=== PATIENT | female | born 1960 | race Hispanic/Latino ===

== ENCOUNTER 2025-06-08 01:56 | Emergency (ER) | payer OTHER ==
[~2025-06-08] VITALS: Ht 149.9 cm; Wt 59.0 kg
[~2025-06-08 01:56] MED LIST: AMLO-258 PO; Calcium Ac 667MG Cap PO; EMPA10TA PO; ERGO500093 PO; EXEM25TA PO; FERR324T4 PO; FOLI0.8T22 PO; FURO20TA4 PO; HYDR50TA37 PO; METO-391 PO; METR-172 PO; SODI325T PO; SODI650T PO
[2025-06-08 01:57] VITALS: BP 194/92; PULSE 87; RESP 20; TEMP 97.6
[2025-06-08] MEDS: 0.9%NACL 1000ML 1,000 ML IV ONE (02:28)
--- NOTE | 2025-06-08 02:46 | ERN ---
ED Note History of Present Illness Stated Complaint: C/O N X V X DIARRHEA ONSET LAST NIGHT Chief Complaint: Nausea,Vomiting,Diarrhea Time Seen by MD: 02:02 Dictation: 64-YEAR-OLD FEMALE PRESENTS TO ER COMPLAINTS OF NAUSEA VOMITING HALLUCINATIONS STATUS POST TAKING VALACYCLOVIR FOR SHINGLES. PATIENT STATES SHE WAS DIAGNOSED WITH SHINGLES 5 DAYS AGO AND STARTED VALACYCLOVIR 2 DAYS AGO. Allergies: Coded Allergies: No Known Drug Allergies (Unverified Allergy, Unknown, 04/23/25) Home Meds Active Scripts Sodium Bicarbonate (Sodium Bicarbonate) 650 Mg Tablet, 650 MG PO BID, #10 TAB Prov:NATE PAYNE B SIZE ROLLER OPERATOR 04/25/25 Metronidazole (Metronidazole) 500 Mg Tablet, 500 MG PO Q8H, #15 TAB Prov:ASHAABEAUA B SIZE ROLLER OPERATOR 04/25/25 Ferrous Sulfate (Ferrous Sulfate) 324 Mg (65 Mg Iron) Tablet.dr, 325 MG PO DAILY, #60 TAB Prov:NATE PAYNE B SIZE ROLLER OPERATOR 04/25/25 [Calcium Ac 667MG Cap] 667 MG CAPSULE No Conflict Check, 667 MG PO TIDMEALS, #30 0 Refills Prov:ASHAABEAUA B SIZE ROLLER OPERATOR 04/25/25 Reported Medications Ergocalciferol (Vitamin D2) (Vitamin D2) 1,250 Mcg (34325 Unit) Capsule, 2 CAP PO QWEEK for 28 Days, #4 CAP 0 Refills 04/23/25 Sodium Bicarbonate (Sodium Bicarbonate) 325 Mg Tablet, 10 MG PO DAILY, TAB 04/23/25 Furosemide (Furosemide) 20 Mg Tablet, 1 TAB PO DAILY for 30 Days, #30 TAB 0 Refills 04/23/25 Empagliflozin (Jardiance) 10 Mg Tablet, 1 TAB PO DAILY for 30 Days, #30 TAB 0 Refills 04/23/25 Exemestane (Exemestane) 25 Mg Tablet, 1 TAB PO DAILY for 30 Days, #30 TAB 0 Refills 04/23/25 Folic Acid/Vitamin B Comp W-C (Veda-Jes Tablet) 0.8 Mg Tablet, 1 TAB PO DAILY for 30 Days, #30 TAB 0 Refills 04/23/25 Hydralazine HCl (Hydralazine HCl) 50 Mg Tablet, 1 TAB PO DAILY for 30 Days, #90 TAB 0 Refills 04/23/25 Amlodipine Besylate (Amlodipine Besylate) 10 Mg Tablet, 1 TAB PO DAILY for 30 Days, #30 TAB 0 Refills 04/23/25 Metoprolol Succinate (Metoprolol Succinate) 50 Mg Tab.er.24h, 1 TAB PO DAILY for 30 Days, #30 TAB 0 Refills 04/23/25 Past Medical History Past Medical History: Diabetes-Type II, Diverticulosis, Hypertension, Renal Failure, Other Additional Past Medical Hx: BREAST CA (IN REMISSION) Surgical History: Appendectomy, Hysterectomy, Cholecystectomy, Other Surgical History Other: RT MASTECTOMY Social History: Negative, Lives with family History: Not Applicable Review of System Dictation CONSTITUTIONAL: NEGATIVE FOR FEVER,CHILLS, AND WEIGHT LOSS EYES: NEGATIVE FOR INJURY, PAIN,REDNESS, AND DISCHARGE ENT: NEGATIVE FOR INJURY,PAIN OR SWELLING CARDIOVASCULAR: NEGATIVE FOR CHEST PAIN, PALPITATIONS, AND EDEMA RESPIRATORY: NEGATIVE FOR SHORTNESS OF BREATH, COUGH, WHEEZING, AND PLEURITIC CHEST PAIN ABDOMEN/GI: NEGATIVE FOR ABDOMINAL PAIN, POSITIVE VOMITING, NAUSEA, DIARRHEA BACK: NEGATIVE FOR PAIN OR INJURY : NEGATIVE FOR INJURY, BLEEDING AND DISCHARGE MS/EXTREMITY: NEGATIVE FOR INJURY AND DEFORMITY SKIN: -RASH TO THE BACK OF HEAD NEURO: NEGATIVE FOR HEADACHE, WEAKNESS, NUMBNESS, TINGLING, AND SEIZURE PSYCH: NEGATIVE FOR SUICIDE IDEATION, HOMICIDAL IDEATION. POSITIVE HALLUCINATIONS ALLERGY/IMMUNOLOGY: NEGATIVE FOR HIVES, RASH, AND ALLERGIES ALL SYSTEMS NEGATIVE, EXCEPT NOTED ABOVE. 13 POINT REVIEW OF SYSTEMS ASSESSED AND ALL NEGATIVE EXCEPT FOR ABOVE. Initial Vital Sign VS Vital Signs Date Time Temp Pulse Resp B/P (MAP) Pulse Ox O2 Delivery O2 Flow Rate FiO2 06/08/25 01:57 97.5 87 20 194/92 98 Room Air Physical Exam Dictation GENERAL: AWAKE, ALERT, NAD HEAD/FACE: NORMOCEPHALIC, ATRAUMATIC EYES: PERRL, EOMI, VISION AT BASELINE ENT: ORAL CAVITY CLEAR, TMS CLEAR, NO SIGNS OF INFECTION NECK: TRACHEA MIDLINE, SUPPLE, NO NUCHAL RIGIDITY CARDIOVASCULAR: RRR, NORMAL NO JVD RESPIRATORY: CTAB, NO RESPIRATORY DISTRESS, NO RALES OR WHEEZES ABDOMEN: SOFT, NON-TENDER, NON-DISTENDED, NORMAL BOWEL SOUNDS, NO GUARDING OR REBOUND. SKIN: WARM, DRY, NORMAL TURGOR MS/EXTREMITY: PULSES EQUAL, NO CYANOSIS, NEUROVASCULAR INTACT, FROM NEURO: COAX4, GCS 15, STRENGTH 5/5, CN 2-12 INTACT, NORMAL CEREBELLAR EXAM, NORMAL GAIT, PSYCH: NORMAL BEHAVIOR, MOOD, AND AFFECT NORMAL Results (Laboratory/Radiology) Laboratory/Radiology Laboratory Tests Test 06/08/25 02:35 White Blood Count 7.9 K/uL (4.8-10.8) Red Blood Count 4.74 MIL/uL (4.00-5.50) Hemoglobin 11.7 g/dL (12.0-16.0) L Hematocrit 37.9 % (36-48) Mean Corpuscular Volume 80.0 fL (79-99) Mean Corpuscular Hemoglobin 24.7 pg (27.0-33.0) L Mean Corpuscular Hemoglobin Concent 30.9 g/dL (32.0-36.0) L Red Cell Distribution Width 18.2 % (11.0-15.5) H Platelet Count 191 K/uL (130-400) Mean Platelet Volume 9.4 fL (7.5-10.5) Immature Granulocyte % (Auto) 0.5 % (0-1) Neutrophils (%) (Auto) 77.4 % (40.0-77.0) H Lymphocytes (%) (Auto) 15.0 % (21.0-51.0) L Monocytes (%) (Auto) 5.2 % (3.0-13.0) Eosinophils (%) (Auto) 1.3 % (0.0-8.0) Basophils (%) (Auto) 0.6 % (0.0-5.0) Neutrophils # (Auto) 6.2 K/uL (1.8-7.7) Lymphocytes # (Auto) 1.2 K/uL (1.0-4.8) Monocytes # (Auto) 0.4 K/uL (0.1-1.0) Eosinophils # (Auto) 0.10 K/uL (0.00-0.70) Basophils # (Auto) 0.05 K/uL (0.00-0.20) Absolute Immature Granulocyte (auto 0.04 K/uL (0-1) Nucleated Red Blood Cells 0.0 % (0.0-0.19) Red Blood Cell Morphology See comments Sodium Level 133 mmol/L (136-145) L Potassium Level 4.6 mmol/L (3.5-5.1) Chloride Level 100 mmol/L (101-111) L Carbon Dioxide Level 15 mmol/L (21-32) L Blood Urea Nitrogen 76 mg/dL (7-18) *H Creatinine 5.3 mg/dL (0.5-1.0) H Glomerular Filtration Rate Calc 8 mL/min (>90) Random Glucose 176 mg/dL (70-105) H Total Calcium 6.9 mg/dL (8.5-10.1) L Total Bilirubin 0.4 mg/dL (0.2-1.0) Aspartate Amino Transf (AST/SGOT) 31 U/L (10-37) Alanine Aminotransferase (ALT/SGPT) 56 U/L (12-78) Alkaline Phosphatase 147 U/L (50-136) H Total Creatine Kinase 46 U/L (21-232) Troponin I High Sensitivity 17 ng/L (4-50) Total Protein 7.2 g/dL (6.0-8.3) Albumin 3.8 g/dL (3.5-5.0) Amylase Level 70 U/L (25-115) # Lipase 100 U/L (16-77) H Labs Reviewed?: Yes ED Course ED Course Orders Procedure Category Date Status Time Cbc With Differential LAB 06/08/25 Complete 02:09 Comprehensive LAB 06/08/25 Complete Metabolic Panel 02:09 Amylase LAB 06/08/25 Complete 02:09 Troponin I High LAB 06/08/25 Complete Sensitivity 02:09 Urinalysis Profile LAB 06/08/25 Logged 02:09 12 Lead Ekg Tracing- EKG 06/08/25 Logged Technical 02:09 0.9%Nacl 1000ml (Ns PHA 06/08/25 Complete 1000ml) 02:30 Ondansetron 4mg Inj PHA 06/08/25 Complete (Zofran 4mg Inj) 02:30 Creatine Kinase, Total LAB 06/08/25 Complete 02:09 Lipase LAB 06/08/25 Complete 02:09 Current Medications Medications (Trade) Dose Ordered Sig/Marcella Route PRN Reason Start Time Stop Time Status Last Admin Dose Admin Ondansetron HCl (zoFRAN 4MG INJ) 4 mg ONCE ONCE IVP 06/08/25 02:30 06/08/25 02:31 DC 06/08/25 02:27 Sodium Chloride 1,000 ml @ 0 mls/hr ONCE ONCE IV 06/08/25 02:30 06/08/25 02:31 DC 06/08/25 02:28 Vital Signs Date Time Temp Pulse Resp B/P (MAP) Pulse Ox O2 Delivery O2 Flow Rate FiO2 06/08/25 01:57 97.5 87 20 194/92 98 Room Air Medical Decision Making MDM MDM: DIFFERENTIAL DIAGNOSIS: SHINGLES, GASTROENTERITIS, MEDICATION REACTION RATIONALE: TESTS CONSIDERED AND ORDERED SECONDARY TO SHARED DECISION MAKING INCLUDE: LABS, ECG AND RADIOLOGY PREVIOUS OUTSIDE RECORDS REVIEWED: OLD ER VISITS. RISK OF COMPLICATION AND/OR MORBIDITY OR MORTALITY OF PATIENT MANAGEMENT: NONE MEDICATIONS-PER MEDICATION RECONCILIATION NEED FOR HOSPITALIZATION: PATIENT DOES NOT MEET CRITERIA FOR HOSPITALIZATION. NEED FOR EMERGENCY MAJOR/MINOR SURGERY: NO THERE ARE NO SOCIAL CONCERNS WITH THIS PATIENT. PRESCRIPTION DRUG MANAGEMENT PRESCRIPTIONS WILL INCLUDE SYMPTOMATIC CARE PATIENT'S PRIOR EXTERNAL MEDICAL RECORDS FROM OTHER ER VISITS WERE REVIEWED BY ME INDICATED. PRIOR TESTING AND RESULTS FROM PREVIOUS VISITS WERE REVIEWED. PRIOR TESTS WERE TAKEN INTO ACCOUNT WITH MEDICAL DECISION MAKING AND RESOURCE UTILIZATION, INDEPENDENT HISTORIAN/HISTORIANS WERE USED TO OBTAIN COMPLETE MEDICAL HISTORY. I INDEPENDENTLY INTERPRETED THE TEST THAT WERE PERFORMED, RESULTS WERE REVIEWED BY ME AND CONSIDERED FINDINGS ON RADIOLOGY IF ORDERED. Patient's laboratory analysis shows that she is in near end-stage renal disease with extremely elevated BUN and creatinine; however, today's lab values are baseline for her. Her CBC is likewise baseline for her. The hallucinations are from the valacyclovir and her renal failure, a known side effect of that medication. The dose told to me by the patient is 10 mg and that is adequately dose reduced given her renal failure but unfortunately still she had hallucinations. They are getting better and the patient feels comfortable going home. DX & DISP Disposition: Discharge Departure Impression: Primary Impression: Drug induced hallucinations Additional Impression: Shingles Condition: Stable Additional Instructions: I think the medication given to you for your shingles coupled with the end-stage renal disease is causing your visual hallucinations. Even with the strong dose reduction of the medication. Your laboratory analysis is normal for you. We have no evidence of an infection. I have low suspicion for an infection in your nervous system. I think it is safe for you to go home. You mentioned that the hallucinations are already decreasing and that is a good sign. I have discussed with the pharmacist if there are medications that we can use to suppress these hallucinations and we can not think of one. Recommend stopping the valacyclovir. I recommend not taking acyclovir. The shingles outbreak seems to be receding per you and your pain is not bad I think the best thing is to not treat it with a anything right now beyond topical m edications. Referrals: SEDRICK VOGT (PCP) WENCESLAO HU Jun 08, 2025 02:46 MAURO GROVES MD Jun 08, 2025 03:46
[2025-06-08 02:56] LABS: IMMATURE GRANULOCYTE ABSOLUTE 0.04 K/uL (0-1); NUCLEATED RED BLOOD CELLS 0.0 % (0.0-0.19); PLATELET COUNT (AUTO) 191 K/uL (130-400); RED BLOOD CELL COUNT(AUTO) 4.74 MIL/uL (4.00-5.50); RED CELL DISTRIBUTION WIDTH 18.2 % (11.0-15.5); WHITE BLOOD COUNT (AUTO) 7.9 K/uL (4.8-10.8)
[2025-06-08 03:10] LABS: ASPARTATE AMINOTRANSFERASE 31.0 U/L (10-37); CREATINE KINASE, TOTAL 46.0 U/L (21-232); CREATININE 5.3 mg/dL (0.5-1.0); GLOMERULAR FILTR. RATE CALC 8.0 mL/min (>90); GLUCOSE,RANDOM 176.0 mg/dL (70-105); SODIUM SERUM 133.0 mmol/L (136-145); TOTAL PROTEIN, SERUM 7.2 g/dL (6.0-8.3)
[2025-06-08 03:13] LABS: UREA NITROGEN, BLOOD 76.0 mg/dL (7-18)
[2025-06-08] MEDS ORDERED: ONDA-243 PO (04:00)
--- NOTE | 2025-06-08 06:54 | EKG ---
[facility] Test Date: 2025-06-08 Test Time: 02:24:02 Pat Name: JUSTIN LANGFORD Department: ED Room: Gender: F Hat Sizer: [id number] : 1960 Requested By: WENCESLAO HU Order Number: [id number] Reading MD: Boogie Rios Measurements Intervals [place] Rate: 87 P: 16 [place]: 189 QRS: -25 QRSD: 93 T: 61 QT: 396 QTc: 479 Interpretive Statements Sinus rhythm Poor R wave progression No previous ECG available for comparison Electronically Signed On 06-08-2025 07:19:36 FARM ADVISOR by Boogie Rios Please click the below link to view image of tracing.
== END 2025-06-08 04:18 | disposition home or self-care (01) ==
LOC: EDH 01:56
DX: R44.2 Other hallucinations (principal); B02.9 Zoster without complications; E11.9 Type 2 diabetes mellitus without complications; I10 Essential (primary) hypertension; Z79.811 Long term (current) use of aromatase inhibitors; Z79.84 Long term (current) use of oral hypoglycemic drugs; Z79.899 Other long term (current) drug therapy; Z85.3 Personal history of malignant neoplasm of breast; Z90.11 Acquired absence of right breast and nipple; Z90.49 Acquired absence of other specified parts of digestive tract; Z90.710 Acquired absence of both cervix and uterus
CPT/HCPCS: 99284; 96374; 82150; 82550; 84484; 80053; 83690; 85025; 36415; 93005; J7030; J2405

== ENCOUNTER → 2025-06-10 | Outpatient (CLI) | payer OTHER ==
[~2025-06-10] MED LIST changes: +ONDA-243 PO
--- NOTE | 2025-06-11 07:09 | HMCIMG ---
EXAMINATION: SPECTRAL DOPPLER ULTRASOUND EXAMINATION OF THE BILATERAL UPPER EXTREMITY VEINS. CLINICAL HISTORY: For arterio-venous access. COMPARISON: None provided. TECHNIQUE: Real-time ultrasound scan of the veins of the bilateral upper extremity. FINDINGS: Depth (cm) Lumen (cm) Right Cephalic vein: Corea: 2.1 0.4 Upper arm: Collapsed Mid arm: Collapsed Lower arm: Collapsed Antecubital fossa: 0.4 0.1 Upper forearm: 0.3 0.3 Mid forearm: 0.4 0.3 Wrist: 0.4 0.2 Basilic vein: Upper arm: 1.5 0.4 Lower arm: 1.0 0.4 Antecubital fossa: 0.7 0.3 Left Cephalic vein: Corea: 1.7 0.3 Upper arm: 0.4 0.1 Mid arm: 0.3 0.2 Lower arm: 0.4 0.1 Antecubital fossa: 0.4 0.3 Upper forearm: 0.4 0.3 Mid forearm: 0.3 0.3 Wrist: 0.2 0.3 Basilic vein: Upper arm: 1.3 0.4 Lower arm: 1.1 0.4 Antecubital fossa: 0.8 0.5 IMPRESSION: No superficial vein thrombosis in the bilateral upper extremity. /Ira
== END | disposition home or self-care (01) ==
LOC: RAH 14:37
PROVIDERS: ATTEND Student in an Organized Health Care Education/Training Program
DX: N18.5 Chronic kidney disease, stage 5 (principal)
CPT/HCPCS: 93970